=== PATIENT | female | born 1935 | race African-American/Black ===

== ENCOUNTER 2021-07-14 04:40 | Emergency (ER) | payer OTHER ==
[~2021-07-14] VITALS: Ht 160 cm; Wt 81.0 kg
[2021-07-14] MEDS ORDERED: ALBUTEROL (0.083%) 2.5MG/3ML NEB HHN ONE (05:30)
[2021-07-14] MEDS ORDERED: FUROSEMIDE 40MG/4ML VIAL IVP ONE (05:30)
[2021-07-14 05:39] LABS: BASOPHILS % 0.6 % (0.0-2.0); EOSINOPHILS % 1.6 % (0.0-5.0); HEMATOCRIT. 28.6 % (36.0-48.0); HEMOGLOBIN. 9.2 g/dL (12.0-16.0); MEAN CORPUSCULAR HEMOGLOBIN 25.7 pg (28.0-32.0); MEAN CORPUSCULAR VOLUME 80.1 fL (81.0-99.0); MEAN PLATELET VOLUME 9.2 fl (7.4-10.4); NEUTROPHILS % 71.8 % (40.0-76.0); PLATELET 185 x1000/uL (130-400); RED BLOOD CELL COUNT 3.57 mill/uL (4.2-5.4); RED CELL DISTRIBUTION WIDTH 15.3 % (11.6-14.6)
[2021-07-14 05:43] LABS: CHLORIDE 105 mEq/L (98-107)
[2021-07-14] MEDS ORDERED: ALBU6.7H9 INH ×2 (08:42→08:43)
[2021-07-14 09:40] VITALS: BP 147/50
== END 2021-07-14 10:40 | disposition home or self-care (01) ==
LOC: ER 04:40
DX: I11.0 Hypertensive heart disease with heart failure (principal); I50.9 Heart failure, unspecified; N28.9 Disorder of kidney and ureter, unspecified
CPT/HCPCS: 36415; 71045; 80053; 83880; 84484; 85025; 93005; 94640; 96374; 99285; J1940

== ENCOUNTER 2022-08-18 07:41 | Inpatient (IN) | payer OTHER ==
[~2022-08-18] VITALS: Ht 152.4 cm; Wt 89.8 kg
[~2022-08-18 07:41] MED LIST: ALBU6.7H3 INH
[2022-08-18 11:19] LABS: HEMATOCRIT. 25.5 % (36.0-48.0); HEMOGLOBIN. 8.4 g/dL (12.0-16.0); MEAN CORPUSCULAR HEMOGLOBIN 25.5 pg (28.0-32.0); MEAN CORPUSCULAR VOLUME 77.6 fL (81.0-99.0); MEAN PLATELET VOLUME 9.7 fl (7.4-10.4); PLATELET 142 x1000/uL (130-400); RED BLOOD CELL COUNT 3.29 mill/uL (4.2-5.4)
[2022-08-18 11:47] LABS: CHLORIDE 109 mEq/L (98-107)
[2022-08-18 12:23] LABS: PLATELET ESTIMATE NORMAL
[2022-08-18] MEDS ORDERED: ASPIRIN 325MG TABLET PO ONE (13:15)
[2022-08-18] MEDS ORDERED: ALBUTEROL (0.083%) 2.5MG/3ML NEB HHN STA (15:29)
[2022-08-18] MEDS ORDERED: IPRATROPIUM BROMIDE (0.02%) 0.5MG/2.5ML NEB HHN STA (15:29)
[2022-08-18] MEDS ORDERED: PREDNISONE 20MG TABLET PO STA (15:29)
[2022-08-18] MEDS ORDERED: ASPIRIN 325MG TABLET PO NR (16:15)
[2022-08-18] MEDS ORDERED: ACETAMINOPHEN 325MG TABLET PO PRN ×2 (20:30)
[2022-08-18] MEDS ORDERED: GUAIFENESIN 200MG/10ML SUGAR FREE UDC PO PRN (20:30)
[2022-08-18] MEDS ORDERED: DOCUSATE SODIUM 100MG CAPSULE PO PRN (20:30)
[2022-08-18] MEDS ORDERED: LEVOFLOXACIN 500MG PREMIX 100 ML IV NR (20:30)
[2022-08-18] MEDS ORDERED: NITROGLYCERIN 0.4MG TABLET SL SL PRN (20:30)
[2022-08-18] MEDS ORDERED: MAGNESIUM/ALUMINUM HYDROXIDE/SIMETHICONE 30ML UDC PO PRN (20:30)
[2022-08-18] MEDS ORDERED: ZOLPIDEM TARTRATE 5MG TABLET PO PRN (20:30)
[2022-08-18] MEDS ORDERED: ONDANSETRON HCL 4MG/2ML INJ IV PRN (20:30)
[2022-08-18] MEDS ORDERED: IPRATROPIUM/ALBUTEROL 0.5-3(2.5)MG/3ML NEB NEB PRN (20:30)
[2022-08-18] MEDS: GUAIFENESIN 600MG ER TABLET PO SCH (21:00)
[2022-08-18] MEDS ORDERED: METHYLPREDNISOLONE SOD SUCC 125 MG/2 ML VIAL IV SCH (22:00)
[2022-08-18 22:18] LABS: T4 FREE 1.37 ng/dL (0.76-1.46)
[2022-08-18 22:46] LABS: VITAMIN B12 SERUM 1994 pg/mL (211-911)
[2022-08-18 23:19] LABS: FOLIC ACID (FOLATE) SERUM > 20.00 ng/mL (>5.38)
[2022-08-19] MEDS ORDERED: LEVOFLOXACIN 500MG PREMIX 100 ML IV NR (01:45)
[2022-08-19] MEDS: FAMOTIDINE 20MG TABLET PO SCH ×2 (02:21→20:56)
[2022-08-19] MEDS: METHYLPREDNISOLONE SOD SUCC 40 MG/ML VIAL IV SCH ×4 (02:21→21:01)
[2022-08-19] MEDS: HYDRALAZINE HCL 50MG TABLET PO SCH ×4 (02:21→21:00)
[2022-08-19] MEDS: ENOXAPARIN 30MG/0.3ML SYR SUBCUT SCH ×2 (02:22→20:55)
[2022-08-19] MEDS: CLONIDINE 0.1MG TABLET PO PRN (02:46)
[2022-08-19 03:04] LABS: CREATINE KINASE MB FRACTION 14.4 ng/mL (0.5-3.6)
[2022-08-19 03:57] VITALS: BP 174/57
[2022-08-19 04:00] VITALS: BP 147/40
[2022-08-19 06:01] LABS: HEMATOCRIT. 26.9 % (36.0-48.0); HEMOGLOBIN. 8.7 g/dL (12.0-16.0); MEAN CORPUSCULAR HEMOGLOBIN 25.2 pg (28.0-32.0); MEAN CORPUSCULAR VOLUME 77.8 fL (81.0-99.0); MEAN PLATELET VOLUME 10.1 fl (7.4-10.4); PLATELET 126 x1000/uL (130-400); RED BLOOD CELL COUNT 3.45 mill/uL (4.2-5.4)
[2022-08-19 07:00] LABS: CHLORIDE 107 mEq/L (98-107)
[2022-08-19 07:12] LABS: CREATINE KINASE 201 IU/L (26-192); CREATINE KINASE MB FRACTION 13.5 ng/mL (0.5-3.6); PHOSPHORUS 3.9 mg/dL (2.5-4.9)
[2022-08-19 08:00] VITALS: BP 155/54
[2022-08-19] MEDS: GUAIFENESIN 600MG ER TABLET PO SCH ×2 (08:21→20:56)
[2022-08-19] MEDS: ASPIRIN 325MG EC TABLET PO SCH (08:21)
[2022-08-19 12:00] VITALS: BP 156/55
[2022-08-19] MEDS ORDERED: SODIUM POLYSTYRENE SULFONATE 15 G/60 ML BOT PO SCH (14:00)
[2022-08-19 16:00] VITALS: BP 142/65
[2022-08-19] MEDS ORDERED: ALBUTEROL (0.083%) 2.5MG/3ML NEB HHN PRN (17:00)
[2022-08-19] MEDS ORDERED: IPRATROPIUM BROMIDE (0.02%) 0.5MG/2.5ML NEB HHN PRN (17:00)
[2022-08-19 19:59] LABS: PLATELET ESTIMATE DECREASED
[2022-08-19 20:00] VITALS: BP 138/48
[2022-08-19] MEDS ORDERED: LEVOFLOXACIN 250MG PREMIX 50ML IV SCH (21:00)
[2022-08-20] VITALS: BP 180/55
[2022-08-20] MEDS: HYDRALAZINE 20MG/ML VIAL IV PRN ×2 (01:52→20:31)
[2022-08-20 04:00] VITALS: BP 129/57
[2022-08-20] MEDS: METHYLPREDNISOLONE SOD SUCC 40 MG/ML VIAL IV SCH ×2 (05:13→13:27)
[2022-08-20] MEDS: HYDRALAZINE HCL 50MG TABLET PO SCH ×3 (05:52→21:10)
[2022-08-20 08:00] VITALS: BP 169/67
[2022-08-20] MEDS: ASPIRIN 325MG EC TABLET PO SCH (08:59)
[2022-08-20] MEDS: GUAIFENESIN 600MG ER TABLET PO SCH (08:59)
[2022-08-20] MEDS: CLONIDINE 0.1MG TABLET PO PRN ×2 (08:59→21:10)
[2022-08-20 12:00] VITALS: BP 124/58
[2022-08-20 16:00] VITALS: BP 160/62
[2022-08-20 18:05] LABS: HEMATOCRIT. 30.6 % (36.0-48.0); HEMOGLOBIN. 9.6 g/dL (12.0-16.0); MEAN CORPUSCULAR HEMOGLOBIN 24.9 pg (28.0-32.0); MEAN CORPUSCULAR VOLUME 79.8 fL (81.0-99.0); MEAN PLATELET VOLUME 10.1 fl (7.4-10.4); PLATELET 143 x1000/uL (130-400); RED BLOOD CELL COUNT 3.84 mill/uL (4.2-5.4); RED CELL DISTRIBUTION WIDTH 18.8 % (11.6-14.6)
[2022-08-20 19:23] LABS: PLATELET ESTIMATE NORMAL
[2022-08-20 20:00] VITALS: BP 196/66
== END 2022-08-20 22:53 | disposition short-term general hospital (02) | DRG 291 ==
LOC: ER 07:41 → 7EST 20:17 → EDBEDREQTM 22:44 → EDBEDREQ 22:44 → ENRESERV 22:53
PROVIDERS: ADMIT Internal Medicine; ATTEND Internal Medicine
DX: I13.0 Hypertensive heart and chronic kidney disease with heart failure and stage 1 through stage 4 chronic kidney disease, or unspecified chronic kidney disease (principal); I50.33 Acute on chronic diastolic (congestive) heart failure; J96.01 Acute respiratory failure with hypoxia; N17.0 Acute kidney failure with tubular necrosis; J44.1 Chronic obstructive pulmonary disease with (acute) exacerbation; E44.1 Mild protein-calorie malnutrition; E78.5 Hyperlipidemia, unspecified; D50.9 Iron deficiency anemia, unspecified; N18.30 Chronic kidney disease, stage 3 unspecified; Z96.649 Presence of unspecified artificial hip joint; R74.01 Elevation of levels of liver transaminase levels; Z20.822 Contact with and (suspected) exposure to COVID-19; Z90.710 Acquired absence of both cervix and uterus; Z68.38 Body mass index [BMI] 38.0-38.9, adult; E78.00 Pure hypercholesterolemia, unspecified
CPT/HCPCS: 36415; 71045; 76770; 80048; 80053; 80061; 82550; 82553; 82607; 82746; 83036; 83540; 83550; 83605; 83735; 83880; 84100; 84145; 84439; 84443; 84484; 85025; 87070; 87426; 93306; 93970; 94640; 99285; C9803; J0360; J1650; J1956; J2920; J7512